=== PATIENT | male | born 1970 | race Caucasian/White ===

== ENCOUNTER → 2024-12-10 | Outpatient (REF) | LOC: M PLAIMG 12:51 | PROVIDERS: ATTEND Internal Medicine | DX: R52 Pain, unspecified (principal) ==

== ENCOUNTER → 2024-12-17 | Outpatient (REF) | payer SELFPAY | LOC: M PLAIMG 11:18 | PROVIDERS: ATTEND Internal Medicine | DX: M54.50 Low back pain, unspecified (principal); M25.511 Pain in right shoulder ==